=== PATIENT | male | born 1945 | race Caucasian/White ===

== ENCOUNTER → 2018-02-02 08:10 | Outpatient (CLI) | payer MEDICARE, SELFPAY ==
[2018-02-02 08:30] LABS: RBC Urine None Seen (0-5/HPF)
[2018-02-02 09:17] LABS: Eosinophils Percent Auto 1.4 % (2-4); Hematocrit 50.5 % (41-53); Hemoglobin 16.8 g/dL (13.5-17.5); Lymphocytes Percent Auto 39.3 % (25-40); Mean Corpuscular HGB Conc 33.3 % (30-36); Mean Corpuscular Hemoglobin 31.8 PG (26-34); Mean Corpuscular Volume 95.7 fL (80-100); Monocytes Percent Auto 15.5 % (3-14); Neutrophils Absolute Auto 1900 /uL (3000-5900); Neutrophils Percent Auto 42.8 % (50-75); Platelet Count 187 X10^3/uL (150-400); Prothrombin Time 10.9 SECONDS (10.1-12.7); Red Blood Cell Count 5.28 X10^6/uL (4.5-5.9); Red Cell Distribution Width 14.4 % (11.6-14.8); White Blood Cell Count 4.4 X10^3/uL (4.5-11.0)
[2018-02-02 09:22] LABS: Add Manual Diff / Slide Review SLIDE REVIEW
[2018-02-02 09:24] LABS: BUN Creatinine Ratio 23.6 (6-22); Blood Urea Nitrogen 26 mg/dL (9-20); Calcium 9.3 mg/dL (8.4-10.2); Carbon Dioxide 29 mmol/L (22-32); Chloride 101 mmol/L (98-107); Estimated Glomerular Filt Rate > 60.0 mL/min (>60); Glucose 123 mg/dL (80-110); HEMOLYSIS 22 (0-50); Potassium 4.2 mmol/L (3.4-5.1); Sodium 140 mmol/L (137-145)
[2018-02-02 10:59] LABS: Appearance Urine UA CLEAR; Bilirubin Urine UA NEGATIVE (NEGATIVE); Color Urine UA YELLOW; Glucose Urine UA NEGATIVE (Normal); Ketones Urine UA NEGATIVE (NEGATIVE); Leukocyte Esterase Urine UA NEGATIVE (NEGATIVE); Nitrite Urine UA Negative (Negative); Occult Blood Urine UA NEGATIVE (Negative); Protein Urine UA NEGATIVE (Negative); Urobilinogen Urine UA 0.2 E.U./dL (0.2)
[2018-02-02 11:11] LABS: Bacteria Urine Occasional (0-1); Culture Indicated Urine Cult Not Indicated; WBC Urine 0-1/HPF (0-5/HPF)
[2018-02-02 13:38] LABS: PTT Partial Thromboplastin Tim 32 SECONDS (26.4-36.2)
== END ==
PROVIDERS: Physician Assistant; Visit Provider Orthopaedic Surgery Sports Medicine
DX: M54.2 Cervicalgia (principal); Z22.322 Carrier or suspected carrier of Methicillin resistant Staphylococcus aureus
CPT/HCPCS: 36415; 80048; 81001; 85025; 85610; 85730; 87797

== ENCOUNTER → 2019-01-23 08:54 | Outpatient (CLI) | payer MEDICARE, SELFPAY ==
--- NOTE | 2019-01-23 09:06 | DI.CT.S_ITS ---
PROCEDURE: CT CHEST WO CON INDICATIONS: DYSPNEA TECHNIQUE: Noncontrast 5 mm thick sections acquired from the pulmonary apices to the posterior costophrenic angles. 7 mm thick coronal and sagittal MIP reformats were then acquired. For radiation dose reduction, the following was used: automated exposure control, adjustment of mA and/or kV according to patient size. COMPARISON: None. FINDINGS: Image quality: Excellent. Lungs and pleura: No acute air space opacities. No pleural effusions or pneumothorax. Central and peripheral airways are patent and normal in caliber. Mediastinum: Heart size is normal. No pericardial effusion. No mediastinal adenopathy by size criteria. Thoracic aorta and central pulmonary arteries are normal in size. Esophagus is normal in caliber. No hiatal hernia. Bones and chest wall: No suspicious bony lesions. No vertebral body compression fractures. No axillary or supraclavicular adenopathy by size criteria. Thyroid gland is not well-seen by this noncontrast technique but appears normal where well visualized. Abdomen: Visualized upper abdominal solid organs and bowel loops appear normal in the absence of contrast. IMPRESSION: Source of dyspnea is not found. Dictated by: Rambo Linton M.D. on 01/23/2019 at 11:24 Approved by: Rambo Linton M.D. on 01/23/2019 at 11:25
== END ==
PROVIDERS: PCP Family Medicine; Visit Provider Internal Medicine
DX: R06.00 Dyspnea, unspecified (principal)
CPT/HCPCS: 71250

== ENCOUNTER → 2019-01-31 11:07 | Outpatient (CLI) | payer MEDICARE, SELFPAY ==
--- NOTE | 2019-01-31 | DI.RAD.S_ITS ---
PROCEDURE: FL BARIUM SWALLOW INDICATIONS: DYSPHAGIA,HOARSENESS COMPARISON: [facility], CT, CT CHEST WO CON, 01/23/2019, 9:00. FINDINGS: Function: There is normal esophageal peristalsis. There is severe gastroesophageal reflux. There is normal transit of a calibrated barium tablet through the esophagus into the stomach. Morphology: Air-contrast images demonstrate normal mucosal morphology. Single contrast views show no esophageal strictures, extrinsic mass effects, or diverticula. Limited images of the stomach demonstrate normal appearance. IMPRESSION: 1. Severe gastroesophageal reflux. Dictated by: Rose Borjas M.D. on 01/31/2019 at 12:22 Approved by: Rose Borjas M.D. on 01/31/2019 at 12:23
== END ==
PROVIDERS: PCP Family Medicine; Visit Provider Otolaryngology
DX: R13.19 Other dysphagia (principal); R49.0 Dysphonia; K21.9 Gastro-esophageal reflux disease without esophagitis
CPT/HCPCS: 74220

== ENCOUNTER → 2019-08-26 09:46 | Outpatient (CLI) | payer MEDICARE, SELFPAY ==
--- NOTE | 2019-08-26 | DI.RAD.S_ITS ---
PROCEDURE: FL BARIUM SWALLOW W SPEECH INDICATIONS: Dysphagia, pharyngoesophageal phase TECHNIQUE: Examination was conducted in conjunction with speech pathology per standard protocol. In the lateral projection, filming was performed of the patient swallowing. AP projection filming may also be performed with patient swallowing. COMPARISON: [facility], , [place] BARIUM SWALLOW, 01/31/2019, 11:14. FINDINGS: Function: The oral preparatory phase appeared within normal limits. There were numerous episodes of laryngotracheal penetration without mynor aspiration. No pathologic vallecular pooling. Morphology: No cricopharyngeal bar is identified. No cervical esophageal webs. No Zenker's diverticulum. No strictures. Postsurgical changes of cervical spinal fusion involving C3-4 through C5-6. No significant mass effect upon the overlying esophagus. IMPRESSION: Modified barium swallow with speech pathology. Multiple episodes of laryngotracheal penetration without mynor aspiration. Please refer to speech pathology report for further details. Dictated by: Joce Valentino M.D. on 08/26/2019 at 19:20 Approved by: Joce Valentino M.D. on 08/26/2019 at 19:24
== END ==
PROVIDERS: PCP Family Medicine
DX: R13.14 Dysphagia, pharyngoesophageal phase (principal)
CPT/HCPCS: 74230

== ENCOUNTER 2019-08-30 13:30 | Outpatient (RCR) | payer MEDICARE, SELFPAY ==
--- NOTE | 2019-06-10 10:06 | ST.IPCSEOM ---
Visit Care Team Role Provider Type Aditi Obregon MD Attending Provider Non-Staff Primary Care Provider Specialty: [facility] Practice Address: [address] [place] [address], [id number] Fax: Email: Current Diagnoses Dysphagia, unspecified (06/07/19) Speech-Language Pathology Swallow Evaluation [facility] Clinical Swallow Evaluation Start: 06/07/19 11:48 Freq: Status: Active Protocol: Document 06/07/19 11:56 LNK (Rec: 06/07/19 12:47 LNK [email or web address]) Clinical Swallow Evaluation Session Time Visit Start Time 09:00 Visit Stop Time 09:50 Total Visit Minutes 50 Visit Information Visit Number 1 Plan of Care Dates 06/07/19-09/08/[address] Amna Obregon Reason for Referral Dysphagia Setting Assessment Location Outpatient Care Visit Type Note Type Initial Evaluation Next Note Type Next Note Type Treatment Note Patient Information Identification Type Name,Picture History Pt is a 73 year rold male seen for a clinical swallowing evaluation at the referral Dr. Obregon. According to the pt he has had a medical history of asthma as a child, and what he thought was COPD. He recently (01/31/19) underwent a barium swallow study and was diagnosed with severe GERD. Additionally, Pt was seen at [facility] for a Modified Barium Swallow Study (MBSS) on 05/27/19. The results of the MBSS indicated penetration, aspiration and prominent valecullar residue, likely secondary to incomplete epiglottic inversion. The pt also reported that he has had 2 ACDF surgeries, the most recent being in September 2018 . Finally he reported that about 30 years ago he underwent a palatal tissue removal that included his tonsils in an attempt to relieve his sleep apnea/ snoring. Subjective Observations The pt brought in a copy of his MBSS report Evaluation Liquids Trialed Thin Administration Type Tea Spoon,Cup Single Sip Oral Phase Comments Informal observation indicated natural dentition in good health. All other OM structures observed to be WFL Pharyngeal Impairment Moderately Impaired Pharyngeal Strategies Sitting Upright (90 deg),Chin Tuck,Double Swallow Pharyngeal Phase Comments The pt was given a trial of thin liquids via cup sip. Hyolaryngeal elevation appeared to be adequate via palpation for dry swallow. However, when drinking the thin liquid, his swallow was audible and gulpy indicating possible reduced laryngeal seal. This was confirmed via review of the [facility] report for the MBSS. Further a small sip required 3 swallow attempts with observed coughing and suspected aspiration indicating pharyngeal residue. Again, this was confirmed by [facility]'s MBSS report. ~5 trials followed with the pt attempting different swallow strategies, including chin tuck, supraglottic and supersupraglottic swallow techniques, all of which where inconsistently effective. Coughing or throat clearing occurred for each swallow. Th e pt continued to clear his throat for the remainder of the session. Findings Rehabilitation Potential Good Impressions Given the pt's medical history it is likely that his dysphagia may have developed secondary to the ACDF surgeries that he has had. Data indicate that ~40% of ACDF procedures result in dysphonia/dysphagia or both. Diet Recommendations Liquids Order Thin Diet Order Regular Medication Recommendations Whole in Carrier Comments Fastidious oral care Additional Dietary Needs Single Sips,No Straws Aspiration Precautions Recommended Precautions Upright at 90 Degrees, Alternate Liquids/Solids,Small Bites/Sips,Chin Tuck,Double Swallow,Supraglottic Swallow Treatment Plan Placement Recommendations after Outpatient Therapy Discharge Appropriate for Therapy Yes Therapy Recommendations Recommend dysphagia therapy to begin a strengthening program for tongue base, hyolaryngeal elevation and use of safe swallow techniques as indicated. Dysphagia Goals Pt will perform swallow HEP to increase tongue base and hyolaryngeal elevation exercises 5-10 times/day. Pt will use safe swallow strategies to reduce aspiration risk. [facility] Follow Up every 2 weeks x 2-3 months
--- NOTE | 2019-06-17 10:24 | ST.IPDYTX ---
Visit Care Team Role Provider Type Aditi Obregon MD Attending Provider Non-Staff Primary Care Provider Specialty: [facility] Practice Address: [address] [place] [address], [phone] Fax: Email: PEER EDUCATOR Dysphagia Treatment PEER EDUCATOR Dysphagia Treatment Start: 06/07/19 11:48 Freq: Status: Active Protocol: Document 06/17/19 10:07 LNK (Rec: 06/17/19 10:23 LNK [email or web address]) Dysphagia Treatment Session Time Visit Start Time 09:30 Visit Stop Time 10:05 Total Visit Minutes 35 Visit Information Visit Number 2 Plan of Care Dates 06/07/19-09/08/19 Setting Assessment Location Outpatient Care Visit Type Note Type Treatment Note Next Note Type Next Note Type Treatment Note Patient Information Identification Type Name,Picture Subjective Observations pt reported that his voice has improved and it is much easier to speak without pushing the air through. Treatment Liquids Trialed Thin Solids Trialed Regular Administration Type Cup Single Sip,Self-Feeding Oral Strategies Double Swallow,Alternate Liquids/Solids Pharyngeal Strategies Double Swallow,Effortful Swallow,Supraglottic Swallow, Small Bites and Sips,Alternate Liquids/Solids Additional Dysphagia Treatment Many repetitions ~ 100/day Strategies Treatment Activities Reviewed MBS results from [facility] PEER EDUCATOR. Primary areas of concern are valeccular inversion, pyriform sinus and valeculla pooling of both liquids and solids. Pt reports voice has improved and he feels it is more normal. Additionally, the pt reported that he thinks his swallow has improved, but less so than his voice. Reviewed exercises thet he is doing at home. We discussed continuing them for two more weeks to see if improvement continues. Three PO trials noted 1) less audible swallows and 2 the pt only needed two swallows per sip. Assessment Patient Response to Treatment Excellent Assessment of Improvement It appears that the glottal adduction exercises have been effective in vocal fold strengthening thereby improving airway protection. The pt's swallowing appears to be improved in decreased swallow noise and number of swallows per bolus. Diet Recommendations Recommendations Continue Current Diet Treatment Plan Appropriate for Continued Therapy Yes Dysphagia Goals Pt will continue to perform swallow HEP to increase tongue base and hyolaryngeal elevation exercises 5-10 times /day. Pt will use safe swallow strategies to reduce aspiration risk.
--- NOTE | 2019-07-01 10:12 | ST.IPDYTX ---
Visit Care Team Role Provider Type Aditi Obregon MD Attending Provider Non-Staff Primary Care Provider Specialty: [facility] Practice Address: [address] [place] [address], [phone] Fax: Email: ULTRASOUND TECHNOLOGIST Dysphagia Treatment ULTRASOUND TECHNOLOGIST Dysphagia Treatment Start: 06/07/19 11:48 Freq: Status: Active Protocol: Document 07/01/19 09:56 LNK (Rec: 07/01/19 10:06 LNK [email or web address]) Dysphagia Treatment Session Time Visit Start Time 09:30 Visit Stop Time 09:55 Total Visit Minutes 25 Visit Information Visit Number 3 Plan of Care Dates 06/07/19-09/08/19 Setting Assessment Location Outpatient Care Visit Type Note Type Treatment Note Next Note Type Next Note Type Treatment Note Patient Information Identification Type Name,Picture Subjective Observations pt reported that his voice has remains improved, however he has been waking up in the night gasping for air even with CPAP - is seeing physician about this. Also encouraged pt to rivas to MD about anti-reflux medication efficacy. Treatment Liquids Trialed Thin Solids Trialed Regular Administration Type Cup Single Sip,Self-Feeding Oral Strategies Double Swallow,Alternate Liquids/Solids Pharyngeal Strategies Double Swallow,Effortful Swallow,Supraglottic Swallow, Small Bites and Sips,Alternate Liquids/Solids Additional Dysphagia Treatment Many repetitions ~ 100/day Strategies Treatment Activities Pt reports voice has that his voice remains more like his normal voice. He also reported that he has had no choking/ coughing episodes with foods like chips, bananas, crackers, etc. He described his swallow has improved, but he still needs 2 swallows to clear the bolus. Trial thin liquids x3 noted: diminished gulpy, audible swallow. Upon palpation his hyolaryngeal elevation movement forward was noticeable , especially with tongue press against palate. Pt reported he is doing prescribed exercises daily. Added a ball for increased resistance to Shaker exercise. Will f/u in 2 weeks. Assessment Patient Response to Treatment Excellent Rehab Potential Good Assessment of Improvement It appears that the glottal adduction exercises have been effective in improving airway protection. The pt's swallowing appears to be improved in decreased swallow noise and number of swallows per bolus. Diet Recommendations Recommendations Continue Current Diet Liquids Order Thin Diet Order Regular Medication Recommendations Whole in Carrier Comments Fastideous oral care Additional Dietary Needs Single Sips,No Straws Aspiration Precautions Recommended Precautions Upright at 90 Degrees, Alternate Liquids/Solids,Small Bites/Sips,Chin Tuck,Double Swallow,Supraglottic Swallow Treatment Plan Placement Recommendation after Discharge Outpatient Therapy Appropriate for Continued Therapy Yes Therapy Recommendations continue POC/HEP Dysphagia Goals Pt will continue to perform swallow HEP to increase tongue base and hyolaryngeal elevation exercises 5-10 times /day. Pt will use safe swallow strategies to reduce aspiration risk. Follow Up Plan every 2 weeks x 2-3 months
--- NOTE | 2019-07-15 10:18 | ST.IPDYTX ---
Visit Care Team Role Provider Type Aditi Obregon MD Attending Provider Non-Staff Primary Care Provider Specialty: [facility] Practice Address: [address] [place] [address], [phone] Fax: Email: FLAT LOCK OPERATOR Dysphagia Treatment FLAT LOCK OPERATOR Dysphagia Treatment Start: 06/07/19 11:48 Freq: Status: Active Protocol: Document 07/15/19 10:10 LNK (Rec: 07/15/19 10:17 LNK [email or web address]) Dysphagia Treatment Session Time Visit Start Time 09:30 Visit Stop Time 10:00 Total Visit Minutes 30 Visit Information Visit Number 4 Plan of Care Dates 06/07/19-09/08/19 Setting Assessment Location Outpatient Care Visit Type Note Type Treatment Note Next Note Type Next Note Type Treatment Note Patient Information Identification Type Name,Picture Subjective Observations pt reported that his voice has remains improved, however he has been waking up in the night gasping for air even with CPAP - is seeing physician about this. Also encouraged pt to rivas to MD about anti-reflux medication efficacy and use of Mucinex ( re: coughing in sleep). Treatment Liquids Trialed Thin Solids Trialed Regular Administration Type Cup Single Sip,Self-Feeding Oral Strategies Double Swallow,Alternate Liquids/Solids Pharyngeal Strategies Double Swallow,Effortful Swallow,Supraglottic Swallow, Small Bites and Sips,Alternate Liquids/Solids Additional Dysphagia Treatment Many repetitions ~ 100/day Strategies Treatment Activities Pt reports voice has that his voice remains more like his normal voice. He also reprted that he has had little to no choking/coughing episodes. His throat clearing as been reduced since starting Mucinex . He described his swallow has improved, but he still has difficulty with pills getting stuck. Continue all swallowing exercises for HEP. Recommend that pt get a repeat MBSS in early August to determine efficacy of current POC and to guide further treatment options. Assessment Patient Response to Treatment Excellent Rehab Potential Good Assessment of Improvement The pt's swallowing appears to be improved. Diet Recommendations Recommendations Continue Current Diet Liquids Order Thin Diet Order Regular Medication Recommendations Whole in Carrier Comments Fastideous oral care Additional Dietary Needs Single Sips,No Straws Aspiration Precautions Recommended Precautions Upright at 90 Degrees, Alternate Liquids/Solids,Small Bites/Sips,Chin Tuck,Double Swallow,Supraglottic Swallow Treatment Plan Placement Recommendation after Discharge Outpatient Therapy Appropriate for Continued Therapy Yes Therapy Recommendations continue POC/HEP Dysphagia Goals Pt will continue to perform swallow HEP to increase tongue base and hyolaryngeal elevation exercises 5-10 times /day. Pt will use safe swallow strategies to reduce aspiration risk. Follow Up Plan Will f/u at [facility] appointment
--- NOTE | 2019-08-30 17:20 | ST.SWALLOW ---
Visit Care Team Role Provider Type Aditi Obregon MD Attending Provider Non-Staff Primary Care Provider Specialty: Family Practice Address: [address] [place] [address], [phone] Fax: Email: ST Modified Barium Swallow Study GLASS PRESSER Modified Barium Swallow Study Start: 06/07/19 11:48 Freq: Status: Active Protocol: Document 08/26/19 16:42 LNK (Rec: 08/30/19 17:19 LNK [email or web address]) Modified Barium Swallow Study Total Time Visit Start Time 10:30 Visit Stop Time 11:00 Total Visit Minutes 30 Visit Information Plan of Care Dates 08/30/19 Insurance Information 11/29/19 Setting Setting Outpatient Care Patient Information Identification Type Name Patient History According to the pt he has had a medical history of asthma as a child, and what he thought was COPD. He underwent a barium swallow study (), and was diagnosed with severe GERD. Additionally, Pt was seen at [facility] for a Modified Barium Swallow Study (MBSS) on . The results of the MBSS indicated penetration, aspiration and prominent valecullar residue, likely secondary to incomplete epiglottic inversion. The pt also reported that he has had 2 ACDF surgeries, the most recent being in September 2018. Finally he reported that about 30 years ago he underwent a palatal tissue removal that included his tonsils in an attempt to relieve his sleep apnea/ snoring. Pt has been seen for dysphagia therapy x 3 months following an exercise program. [ End Subjective Observations Pt was seated in the flouroscopy chair. He was provided with the procedure and instructions for the study . He agreed to proceed. Pt reported that he will be traveling or out of state until early January 2020. Patient Positioning Position View Lateral Imaging Lateral View Textures Administered Trials Presented Thin Liquid via Spoon,Thin Liquid via Cup,[place] Liquid via Spoon,[place] Liquid via Cup,Honey Liquid via Spoon, Regular Textures Oral Phase Source: MBSIMP (TM) (C) Bolus Specific Scoring Grid Lip Closure WFL Tongue Control During Bolus Hold WFL Bolus Prep/Mastication WFL Bolus Transport/Lingual Motion WFL Oral Residue WFL Residue Clearing WFL Nasal Regurgitation No Pharyngeal Phase Source: MBSIMP (TM) (C) Bolus Specific Scoring Grid Delayed Initiation of Pharyngeal Swallow No Soft Palate Elevation WFL Tongue Base Strength/Range of Motion Moderate Impairment Residue Along the Tongue Base Yes Clearance of Residue Along Tongue Base WFL Laryngeal Elevation Moderate Impairment Anterior Hyoid Movement Moderate Impairment Epiglottic Range of Motion Moderate Impairment Vallecular Residue Yes Clearance of Vallecular Residue Moderate Impairment Laryngeal Vestibular Closure Moderate Impairment Pharyngeal Stripping Wave Moderate Impairment Posterior Pharyngeal Wall Residue Yes Clearance of Posterior Pharyngeal Wall Moderate Impairment Residue Upper Esophageal Sphincter Opening WFL Residue in the Pyriform Sinuses Yes Clearance of Residue in the Pyriform Moderate Impairment Sinuses Esophageal Clearance Upright Position WFL Pharyngoesophageal Backflow Observed No Additional Pharyngeal Phase Observations Penetration into the laryngeal vestibule was observed across all trials. No overt aspiration observed. Residue on the anterior wall of the thyroid lamina was observed to slowly flow toward the vocal folds. Reflexive cough/throat clear was observed for each trial and was effective in clearing residue. Hyolaryngeal elevation and forward movement was reduced. Minimal posterior pharyngeal stripping was observed, reducing control of the bolus to the UES. Epiglottic inversion was not observed, increasing risk of penetration/aspiration. Often the epiglottis did not invert or partially inverted. Pooling in the vallecula, pyriform sinuses, along the posterior pharyngeal wall and throughout the pharynx was noted. Residue was observed to flow into the airway with subsequent swallows. The pt was observed to swallow 4-5 times in order to clear the bolus. He reported that he swallows many times per bite/ sip in order to clear a bolus. And he frequently coughs or clears his throat during a meal. He describes the coughing/throat clearing as constant A/P View Clinical Impressions Dysphagia Type Moderate-severe pharyngeal phase dysphagia Findings The pt provided a copy of his original MBS from May. When viewed and compared to the current MBS described, there is minimal improvement overall in his swallow function. A small difference may be seen in laryngeal elevation. Pt has consistently been practicing and performing the swallowing exercises as prescribed for 3 months. More improvement would have been expected. The lack of significant improvement appears to indicate there is neuromuscular changes that may have been a result of the two ACDF procedures. One therapeutic strategy/ treatment that has not been attempted to date is the use of VitalStim therapy. VitalStim therapy uses electrical stimulation of the swallow muscles to excite the nerves and is thought to increase the strength of muscular contraction for improving swallowing. VitalStm therapy is recommended to determine the effectiveness of the technique for improving pt's swallow function. A VitalStim certified GLASS PRESSER is required to perform the treatments. [facility] has an GLASS PRESSER that is certified and has experience with the VitalStim treatment protocol. Patient Appropriate for Therapy Yes: VitalStim Therapy when pt returns to [place] in January. Recommendations Treatment Plan Therapy Recommendations Outpatient Speech Therapy, Other Additional Therapy Recommendations VitalStim therapy
--- NOTE | 2019-08-30 17:22 | ST.OPPOC ---
Physical, Occupational & Speech Therapy At [facility] Visit Care Team Role Provider Type Aditi Obregon MD Attending Provider Non-Staff Primary Care Provider Address: [address] [place] [address], [place], [phone] Fax: Speech Pathology Plan of Care Plan of Care Dates 06/07/19-09/08/19 Rehabilitation Potential Good Electronically Signed by: GENET Cortez 08/30/19 1431 Please Sign and Return: I have reviewed this Plan of Care and certify that the skilled therapy services above are required to meet the patient?s needs. Physician Signature Date Printed Name and Credentials Clinical Instructor Signature Printed Name and Credentials
--- NOTE | 2019-08-30 18:32 | ST.IPDYTX ---
Visit Care Team Role Provider Type Aditi Obregon MD Attending Provider Non-Staff Primary Care Provider Specialty: Family Practice Address: [address] [place] [address], [phone] Fax: Email: UTILITY LOCATOR Dysphagia Treatment UTILITY LOCATOR Dysphagia Treatment Start: 06/07/19 11:48 Freq: Status: Active Protocol: Document 08/30/19 18:21 LNK (Rec: 08/30/19 18:32 LNK [email or web address]) Dysphagia Treatment Session Time Visit Start Time 14:30 Visit Stop Time 15:30 Total Visit Minutes 60 Visit Information Visit Number 5 Plan of Care Dates 06/07/19-09/08/19 Setting Assessment Location Outpatient Care Visit Type Note Type Treatment Note Next Note Type Next Note Type Treatment Note Patient Information Identification Type Name,Picture Subjective Observations pt reported that his voice has remains improved, however he has been waking up in the night gasping for air even with CPAP - is seeing physician about this. Also encouraged pt to rivas to MD about anti-reflux medication efficacy and use of Mucinex ( re: coughing in sleep). Treatment Pharyngeal Strategies Double Swallow,Effortful Swallow,Supraglottic Swallow, Small Bites and Sips,Alternate Liquids/Solids Additional Dysphagia Treatment Many repetitions ~ 100/day Strategies Treatment Activities Reviewed the most recent MBs with Joce and his . Described the results and noted that there has been minimal improvement in his swallow function. Recommended that he try VitalStim therapy to see if there can be greater improvement with electrical stim. Joce and his are going to be out of state and on vacation for the next 4-5 months. he wants to resume therapy with Vital Sim after he returns. Assessment Patient Response to Treatment Good Rehab Potential Fair Diet Recommendations Recommendations Continue Current Diet Medication Recommendations Whole in Carrier Comments Fastideous oral care Additional Dietary Needs Single Sips,No Straws Aspiration Precautions Recommended Precautions Upright at 90 Degrees, Alternate Liquids/Solids,Small Bites/Sips,Chin Tuck,Double Swallow,Supraglottic Swallow Treatment Plan Placement Recommendation after Discharge Outpatient Therapy Appropriate for Continued Therapy Yes Therapy Recommendations continue POC/HEP Dysphagia Goals Pt will continue to perform swallow HEP to increase tongue base and hyolaryngeal elevation exercises 5-10 times /day. Pt will use safe swallow strategies to reduce aspiration risk. Follow Up Plan Will f/u at [facility] appointment
--- NOTE | 2019-09-10 14:54 | ST.IPDYTX ---
Visit Care Team Role Provider Type Aditi Obregon MD Attending Provider Non-Staff Primary Care Provider Specialty: [facility] Practice Address: [address] [place] [address], [phone] Fax: Email: SKIMMER REVERBERATORY Dysphagia Treatment SKIMMER REVERBERATORY Dysphagia Treatment Start: 06/07/19 11:48 Freq: Status: Active Protocol: Document 09/10/19 13:30 LNK (Rec: 09/10/19 14:53 LNK [id number]) Dysphagia Treatment Visit Type Note Type Discharge Summary Patient Information Subjective Observations pt reported that his voice has remains improved, however he has been waking up in the night gasping for air even with CPAP - is seeing physician about this. Also encouraged pt to rivas to MD about anti-reflux medication efficacy and use of Mucinex ( re: coughing in sleep). Treatment Treatment Activities Pt is on vacation or out of state until January 2020 Diet Recommendations Recommendations Continue Current Diet Additional Dietary Needs Single Sips,No Straws Aspiration Precautions Recommended Precautions Upright at 90 Degrees, Alternate Liquids/Solids,Small Bites/Sips,Chin Tuck,Double Swallow,Supraglottic Swallow Treatment Plan Appropriate for Continued Therapy No
== END 2019-09-12 13:06 ==
LOC: SP 13:30
PROVIDERS: PCP Family Medicine; Visit Provider Family Medicine
DX: R13.10 Dysphagia, unspecified (principal)
CPT/HCPCS: 92526; 92610; 92611

== ENCOUNTER 2020-05-08 09:30 | Outpatient (RCR) | payer MEDICARE, SELFPAY ==
--- NOTE | 2020-03-26 16:50 | ST.OPIE ---
Visit Care Team Role Provider Type Aditi Obregon MD Attending Provider Non-Staff Primary Care Provider Referring Provider Specialty: [facility] Address: [address] [place] [address], [phone] Fax: Email: Speech-Language Pathology Initial Evaluation DATA MODELER Voice Resonance Evaluation Start: 03/26/20 16:16 Freq: Status: Active Protocol: Document 03/26/20 16:16 LNK (Rec: 03/26/20 16:50 LNK [email or web address]) Voice and Resonance Assessment Session Time Visit Start Time 15:30 Visit Stop Time 16:30 Total Visit Minutes 60 Visit Information Visit Number 1 Plan of Care Dates 03/26/20-05/26/20 Next Note Type Next Note Type Treatment Note Referral Referring Physician Dr. 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 He had been receiving dysphagia therapy for frequent coughing and choking when eating. Swallowing exercises were not effective. It was recommended that pt see Dr Torrez in [place] for stroboscopy assessment. 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 Pt then saw Dr Torrez for vocal fold augmentation with fillers to better position the paralyzed vocal fold for adduction and voice production. Previous Therapy Previous Speech-Language Therapy Yes: Dysphagia therapy Subjective Subjective Pt arrived on time. - Laryngeal Performance S/Z Ratio Reduced Laryngeal Function Relative to No: Pt able to phonate ~ 16s Respiration CAPE-V Overall Severity 71 Roughness 74 Breathiness 40 Strain 18 Pitch 20 Loudness 22 Normal Resonance? Yes Additional Features Diplophonia,Glottal Boland, Aphonia,Pitch Instability Maximum Phonation Time MPT Norms: Women (15-25) Men (25-35) Loudness (50-60 dB); Speaking Rate: Oral Reading of Sentences (190 Words Per Minute); Oral Reading of Paragraphs (160-170 WPM); Speaking Rate in Conversation (150-250 WPM) Maximum Phonation Time 15.6s Maximum Phonation Time Adequate for Speech,Unstable Pitch,Unstable Loudness Jitter/Shimmer Norms: Jitter (Less than or equal to 1.040% - Frequency) Norms: Shimmer (Less than or equal to 3.810% - Amplitude) Jitter 4.7 Shimmer 16.6 Pitch [place] Pitch [place] Pitch Breaks,Reduced Range, Cessation of Voicing Muscle Tension Assessment Muscle Tension Assessment Neck Breath Support Breath Support At Rest Thoracic Breath Support Sustained Phonation Thoracic Speaks on Room Air Yes Postural Alignment Stance Balanced Voice Pitch Range Norms: Women (100-300 Hz) Men (70-250 Hz) Fundamental Frequency Norms: Women (Mean: 225 Hz; Range: 155-334 Hz) Men ( Mean: 128 Hz; Range: 85-196 Hz) Voice Pitch Excessive Variation,Pitch Breaks,Diplophonia Voice Loudness Normal Voice Phonatory-based Quality Loss of Voice,Glottal Boland, Pitch Breaks,Diplophonia Fundamental Frequency 167.5 Hz Paradoxical Vocal Fold Movement No Indications Resonance Nasal Resonance Normal Other Observations Throat Clearing Therapeutic Techniques Therapy Tactics Hard Glottal Onset,Increase Loudness,Increase Fundamental Frequency Voice/Resonance Assessment Assessment Pt presented with a variable voice quality and pitch following filler injection of paralyzed vocal fold. This is frustrating to the pt. However, he has not had this injection very long and is somewhat expected. It is not uncommon for a pt's voice to be inconsistent given there is new mass within the paralyzed vocal fold and the pt is unused to the control needed in order to phonate now. Voice therapy is recommended to increase the adduction of the vocal folds for imporved vocal quality and pitch Prognosis Rehabilitation Potential Excellent - Recommendations Treatment Recommended Yes Treatment Frequency/Duration 1x/every 3 weeks x 3 months Short Term Goals Pt will perform HEP 2-3 times/ day: vocal adduction exercises u to 25 times per session for 3 weeks. Day Camp Unit Leader Goals Pt's vocal quality and pitch will improve in to WFL. Patient/Caregiver Education Patient/Family Education Described results of evaluation,Patient Understanding,Patient Demonstration
--- NOTE | 2020-04-17 10:23 | ST.OPTN ---
Visit Care Team Role Provider Type Aditi Obregon MD Attending Provider Non-Staff Primary Care Provider Referring Provider Address: [address] [place] [address], [phone] Fax: IT APPLICATIONS ANALYST Treatment Note IT APPLICATIONS ANALYST Treatment Note Start: 03/26/20 16:16 Freq: Status: Active Protocol: Document 04/17/20 10:04 LNK (Rec: 04/17/20 10:23 LNK [id number]) Speech Pathology Treatment Note Session Time Visit Start Time 09:30 Visit Stop Time 10:00 Total Visit Minutes 30 Visit Information Visit Number 2 Plan of Care Dates 03/26/20-05/26/20 Setting Treatment Setting Outpatient Care Visit Type Note Type Treatment Note Next Note Type Next Note Type Treatment Note General Information General Information Pt is a 74 year old male 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 Pt then saw Dr Torrez for vocal fold augmentation with fillers to better position the paralyzed vocal fold for adduction and voice production. [ End ] Subjective Identification Type Name Identification Reconciled With Medical Record Chief Complaint(s) Swallowing,Voice Rehab Expectation/Goals: Patient Goals Improve vocal quality and reduce risk for aspiration Patient Knowledge/Awareness of IT APPLICATIONS ANALYST Role Excellent in Treatment Patient/Caregiver Compliance with Home Excellent Exercise Program Objective Short Term Goals Pt will perform HEP 2-3 times/ day: vocal adduction exercises u to 25 times per session for 3 weeks. Er Physician Goals Pt's vocal quality and pitch will improve in to WFL. Treatment Activities Pt's voice seemed to be less croaky today. Pt reported that he has stopped mucinex because of effect on blood pressure. pt reported that he has been performing vocal fold adduction exercises daily . Added supraglottic swallow (modified - no cough) during meals to increase functional aspect to adduction exercise. Also added Althea and Misako exercises in attempt to strengthen tongue base and improve hyoid movement, reducing pt's aspiration risk Assessment Patient Response to Treatment Excellent Rehab Potential Excellent Impairments Identified Dysphagia,Vocal Quality Progress Towards Goals Excellent Progress Assessment of Overall Progress Improving Assessment of Improvement Pt reports improvement noted with his swallow since the vocal fold augmentation and adduction exercises started. Perceptually, voice less croaky and more tonal. Continue POC will see pt in 3 weeks. Reviewed with Patient Progress Being Made,Home Exercise Program Patient/Caregiver Understanding Excellent Plan Amount of Therapy Recommended 2-3 Months Comment 1x every 3 weeks Length of Session 30 Minutes Therapeutic Contents Swallowing/Feeding,Voice Training Provided Patient/Caregiver Instruction Home Exercise Program, Questions/Concerns Therapy Recommendations Continue with Current Program
--- NOTE | 2020-05-08 10:22 | ST.OPDS ---
Visit Care Team Role Provider Type Aditi Obregon MD Attending Provider Non-Staff Primary Care Provider Referring Provider Address: [address] [place] [address], [phone] Fax: HOOP RIVETING MACHINE OPERATOR HELPER Treatment Note HOOP RIVETING MACHINE OPERATOR HELPER Treatment Note Start: 03/26/20 16:16 Freq: Status: Active Protocol: Document 05/08/20 09:34 LNK (Rec: 05/08/20 10:21 LNK [email or web address]) Speech Pathology Treatment Note Session Time Visit Start Time 09:30 Visit Stop Time 10:00 Total Visit Minutes 30 Visit Information Visit Number 3 Plan of Care Dates 03/26/20-05/26/20 Setting Treatment Setting Outpatient Care Visit Type Note Type Treatment Note Next Note Type Next Note Type Treatment Note General Information General Information Pt is a 74 year old male familiar to this HOOP RIVETING MACHINE OPERATOR HELPER who had been diagnosed by Dr. Torrez with a unilateral vocal fold paralysis in the closed positon. Pt then saw Dr Torrez for vocal fold augmentation with fillers to better positon the paralyzed vocal fold for adduction and voice production. [ End ] Subjective Identification Type Name Identification Reconciled With Medical Record Chief Complaint(s) Swallowing,Voice Rehab Expectation/Goals: Patient Goals Improve vocal quality and reduce risk for aspiration Patient Knowledge/Awareness of HOOP RIVETING MACHINE OPERATOR HELPER Role Excellent in Treatment Patient/Caregiver Compliance with Home Excellent Exercise Program Objective Short Term Goals Pt will perform HEP 2-3 times/ day: vocal adduction exercises u to 25 times per session for 3 weeks. Nursing Home Goals Pt's vocal quality and pitch will improve in to WFL. Treatment Activities Re- evaluation of pt's vocal parameters. Vocal quality improved significantly. All parameters improved significantly as well. No pitch breaks, or variability of phonation for extended vocalization max Phonation time 17.6 seconds, Jitter @3. 025% and Simmer @ 4.58%. Pitch range 87-321Hz, ,which demonstrates improved flexibility of vocal folds. Finally, Pt reported that he has had no difficulty with excessive throat clearing or aspirating when eating. Assessment Patient Response to Treatment Excellent Rehab Potential Excellent Impairments Identified Dysphagia,Vocal Quality Progress Towards Goals Excellent Progress Assessment of Overall Progress Improving Assessment of Improvement Pt reports improvement noted with his swallow since the vocal fold augmentation and adduction exercises started. Reviewed with Patient Progress Being Made,Home Exercise Program Patient/Caregiver Understanding Excellent Plan Amount of Therapy Recommended No Further Therapy Therapeutic Contents Swallowing/Feeding,Voice Training Provided Patient/Caregiver Instruction Home Exercise Program, Questions/Concerns Therapy Recommendations Continue with Current Program, Discharge to Home Exercise Program
== END 2020-05-22 09:33 ==
LOC: SP 09:30
PROVIDERS: PCP Family Medicine; Referring Provider Family Medicine; Visit Provider Family Medicine
DX: R13.10 Dysphagia, unspecified (principal)
CPT/HCPCS: 92507; 92520; 92524

== ENCOUNTER 2020-06-10 07:27 | Emergency (ER) | payer MEDICARE, SELFPAY ==
[2020-06-10 07:36] VITALS: BP 123/77; PULSE 86; O2SAT 96
[2020-06-10 07:38] VITALS: BP 123/77; PULSE 88; RESP 16; TEMP 37; O2SAT 96; BMI 24.3
--- NOTE | 2020-06-10 07:43 | ED_ITS ---
HPI - General Adult General Chief complaint: Urogenital-Male Stated complaint: POSSIBLE UTI Time Seen by Provider: 06/10/20 07:29 Source: patient Mode of arrival: Ambulatory Limitations: no limitations History of Present Illness HPI narrative: Patient is a 74-year-old male here for evaluation of what he thinks is a urinary tract infection. Patient's history is significant for a brain biopsy that was done earlier this month and diagnosed with a glioblastoma. After surgery there were some issues with his blood sugar and his states that he was also found to be retaining urine. A urinary catheter was placed which she had in for 12 days. This was removed approximately 1 week ago. Since that time he states that he has had some discomfort with urinating however this has worsened over the past couple days. No fevers. He has never been treated for urinary tract infection in the past but he states that he thinks that he has had 1. He also has known prostate issues. Currently denies any fevers. No bowel symptoms. No nausea vomiting. Related Data Home Medications Medication Instructions Recorded Confirmed amlodipine 10 mg tablet 10 mg PO DAILY 02/02/18 05/04/20 certolizumab pegol 200 mg SUBCUT ONCE 02/02/18 05/04/20 folic acid 400 mcg tablet 400 mcg PO DAILY 02/02/18 05/04/20 modafinil 200 mg tablet 200 mg PO DAILY 02/02/18 05/04/20 montelukast 10 mg tablet 10 mg PO QPM 02/02/18 05/04/20 omega-3 fatty acids 1,000 mg 2,000 mg PO DAILY 02/02/18 05/04/20 capsule omeprazole 20 mg tablet,delayed 20 mg PO DAILY 02/02/18 05/04/20 release testosterone cypionate 200 mg/mL 200 mg IM Q2W 02/02/18 05/04/20 intramuscular oil valsartan 320 mg tablet 320 mg PO DAILY 02/02/18 05/04/20 Previous Rx's Medication Instructions Recorded levofloxacin 250 mg PO DAILY 3 Days #3 tab 06/10/20 Allergies Allergy/AdvReac Type Severity Reaction Status Date / Time bupropion [From WELLBUTRIN] Allergy Intermediate Hives Verified 05/04/20 11:03 effudex cream Allergy Severe Facial Uncoded 03/22/18 09:47 swelling Review of Systems Constitutional Constitutional: Denies fever(s) and Denies headache(s) ENT Ears, Nose, Mouth, and Throat: Denies headache(s) Cardiovascular Cardiovascular: Denies chest pain and Denies dyspnea Respiratory Respiratory: Denies dyspnea Gastrointestinal Gastrointestinal: Denies abdominal pain, Denies change in bowel habits, Denies nausea and Denies vomiting Genitourinary Genitourinary: Reports dysuria, Reports urinary frequency and Reports urinary hesitancy Genitourinary: Reports urinary frequency, Reports dysuria and Reports urinary hesitancy Musculoskeletal Musculoskeletal: Denies arthralgias, Denies back pain and Denies myalgias Integumentary/Breasts Skin/Breast: Denies rash Neurologic Neurologic: Denies headache(s) Hematologic/Lymphatic Hematologic/Lymphatic: Denies easy bleeding and Denies easy bruising Allergic/Immunologic Allergic/Immunologic: Denies urticaria Patient History Medical History Crohn's disease with complication (03/08/16) Essential hypertension (03/08/16) Glioblastoma (Acute) Iron deficiency (03/08/16) Pulmonary emphysema (03/08/16) Social History Smoking Status: Former smoker Smoking Status: Former smoker Exam Initial Vital Signs Initial Vital Signs: Vital Signs Temperature 98.6 F 06/10/20 07:38 Pulse Rate 88 06/10/20 07:38 Respiratory Rate 16 06/10/20 07:38 Blood Pressure 123/77 06/10/20 07:38 Pulse Oximetry 96 06/10/20 07:38 Const General: cooperative and comfortable Resp Effort & Inspection: normal respiratory effort Cardio Rate: regular rate GI Inspection: non-distended Palpation: soft and No tender Skin Lesions: no lesions Rashes: no rashes Neuro General: patient alert and patient awake Extrem General: capillary refill normal Psych Appearance: grossly normal and well kempt Course Orders Ordered: ED Orders 06/10/20 08:45 Urine Culture Stat Urine Culture Stat Urine Microscopic Stat Vital Signs Vital signs: Vital Signs - 8 hr 06/10/20 07:38 Temperature 98.6 F Pulse Rate 88 Respiratory Rate 16 Blood Pressure 123/77 Pulse Oximetry 96 Medical Decision Making Lab Data Lab results reviewed: Yes I reviewed the patient's lab results. Labs: Lab Results 06/10/20 Range/Units 08:45 Urine RBC None seen (0-5/HPF) Urine WBC 1-5/hpf (0-5/HPF) Urine Bacteria Many (>30) H (None) Ur Culture Indicated? Specimen cultured Urine Dip Bedside Urine Glucose Negative Bedside Urine Bilirubin - Negative Bedside Urine Ketone - Negative Urine Specific [place] 1.015 Bedside Urine Occult Blood - Negative Bedside Urine pH 7 Bedside Urine Protein - Negative Bedside Urine Urobilinogen +/- 1mg Bedside Urine Nitrite + Positive Bedside Urine Leukocytes - Negative Esterase Point of care testing: Urine Dip Bedside Urine Glucose Negative Bedside Urine Bilirubin - Negative Bedside Urine Ketone - Negative Urine Specific [place] 1.015 Bedside Urine Occult Blood - Negative Bedside Urine pH 7 Bedside Urine Protein - Negative Bedside Urine Urobilinogen +/- 1mg Bedside Urine Nitrite + Positive Bedside Urine Leukocytes - Negative Esterase MDM Narrative Medical decision making narrative: Initial bladder scan showed just over 100 cc urine. Patient drank fluids and was still unable to urinate he requested that we place a catheter to obtain the urine sample. We did discuss the risks and benefits of this and he again expressed a desire to have the catheter. The urinalysis from the specimen showed nitrite positive and also bacteria. Given his physical exam I do suspect this is an infection and not just a colonization given his recent catheter placement and subsequent removal. On this visit the catheter was left in for short period of time and we did drain 600 cc of urine from his bladder. I had a discussion with him regarding the catheter. We discussed removing it here in the emergency department and the potential that despite the antibiotics he continues to have issues urinary retention which require him to come back to the emergency department have the catheter placed again. We also discussed leaving the catheter in place to avoid this issue. After this discussion him and his decided to have the catheter removed. Given his upcoming issues with chemotherapy and radiation will place him on Levaquin. Urine culture was pending at the time of discharge and he was informed of this and we will call if we need to switch any antibiotics. He expressed understanding and agreement. Discharge Plan Departure Patient Disposition: Home Clinical Impression: Urinary tract infection Qualifiers: Urinary tract infection type: acute cystitis Hematuria presence: without hematuria Qualified Code(s): N30.00 - Acute cystitis without hematuria Instructions: DI for Urinary Tract Infection (UTI) Activity Restrictions/Additional Instructions: A prescription for antibiotics was electronically transmitted to [facility]. Keep all of your scheduled medical appointments. If you start to have worsening pain, fevers, inability to urinate please return to the emergency department for further evaluation. Prescriptions: New levofloxacin 250 mg tablet 250 mg PO DAILY 3 Days Qty: 3 RF: 0 No Action amlodipine 10 mg tablet 10 mg PO DAILY RF: 0 valsartan 320 mg tablet 320 mg PO DAILY RF: 0 modafinil 200 mg tablet 200 mg PO DAILY RF: 0 certolizumab pegol [Cimzia] 400 mg/2 mL (200 mg/mL x 2) syringe kit 200 mg SUBCUT ONCE RF: 0 omeprazole 20 mg tablet,delayed release (DR/EC) 20 mg PO DAILY RF: 0 testosterone cypionate [Depo-Testosterone] 200 mg/mL oil 200 mg IM Q2W RF: 0 montelukast [Singulair] 10 mg tablet 10 mg PO QPM RF: 0 omega-3 fatty acids [Fish Oil Concentrate] 1,000 mg capsule 2,000 mg PO DAILY RF: 0 folic acid 400 mcg tablet 400 mcg PO DAILY RF: 0 Referrals: Aditi Obregon MD [Primary Care Provider] -
[2020-06-10 08:54] LABS: RBC Urine None Seen (0-5/HPF)
[2020-06-10 09:06] LABS: Bacteria Urine Many (>30); Culture Indicated Urine Specimen Cultured; WBC Urine 1-5/HPF (0-5/HPF)
[2020-06-10 09:13] VITALS: PULSE 71; O2SAT 96
[2020-06-10 09:14] VITALS: BP 125/78; PULSE 71; RESP 16; O2SAT 96
== END 2020-06-10 09:20 | disposition home or self-care (01) ==
PROVIDERS: Emergency Provider Emergency Medicine; PCP Family Medicine
DX: N30.00 Acute cystitis without hematuria (principal)
CPT/HCPCS: 51701; 51798; 81003; 81015; 87077; 87086; 87186; 99283

== ENCOUNTER 2020-07-06 17:23 | Emergency (ER) | payer MEDICARE, SELFPAY ==
[2020-07-06 17:27] VITALS: BP 165/104; PULSE 78; RESP 24; TEMP 36.8; O2SAT 97
--- NOTE | 2020-07-06 18:19 | ED.ABDPAIN ---
HPI - Abdominal Pain General Chief Complaint: Abdominal Pain Stated Complaint: BLOCKED UP Time Seen by Provider: 07/06/20 18:11 Source: patient Mode of arrival: Ambulatory Related Data Home Medications Medication Instructions Recorded Confirmed amlodipine 10 mg tablet 10 mg PO DAILY 02/02/18 05/04/20 certolizumab pegol 200 mg SUBCUT ONCE 02/02/18 05/04/20 folic acid 400 mcg tablet 400 mcg PO DAILY 02/02/18 05/04/20 modafinil 200 mg tablet 200 mg PO DAILY 02/02/18 05/04/20 montelukast 10 mg tablet 10 mg PO QPM 02/02/18 05/04/20 omega-3 fatty acids 1,000 mg 2,000 mg PO DAILY 02/02/18 05/04/20 capsule omeprazole 20 mg tablet,delayed 20 mg PO DAILY 02/02/18 05/04/20 release testosterone cypionate 200 mg/mL 200 mg IM Q2W 02/02/18 05/04/20 intramuscular oil valsartan 320 mg tablet 320 mg PO DAILY 02/02/18 05/04/20 Allergies Allergy/AdvReac Type Severity Reaction Status Date / Time bupropion [From WELLBUTRIN] Allergy Intermediate Hives Verified 05/04/20 11:03 effudex cream Allergy Severe Facial Uncoded 03/22/18 09:47 swelling Patient History Medical History (Updated 06/25/20 @ 00:00 by ) Crohn's disease with complication (03/08/16) Essential hypertension (03/08/16) Glioblastoma Iron deficiency (03/08/16) Pulmonary emphysema (03/08/16) Social History Smoking Status: Former smoker Smoking Status: Former smoker alcohol intake frequency: a few times a month Substance Use Type: marijuana Exam Initial Vital Signs Initial Vital Signs: Vital Signs Temperature 98.3 F 07/06/20 17:27 Pulse Rate 78 07/06/20 17:27 Respiratory Rate 24 07/06/20 17:27 Blood Pressure 165/104 H 07/06/20 17:27 Pulse Oximetry 97 07/06/20 17:27 Course Vital Signs Vital signs: Vital Signs - 8 hr 07/06/20 17:27 Temperature 98.3 F Pulse Rate 78 Respiratory Rate 24 Blood Pressure 165/104 H Pulse Oximetry 97 Discharge Plan Departure Prescriptions: No Action amlodipine 10 mg tablet 10 mg PO DAILY RF: 0 valsartan 320 mg tablet 320 mg PO DAILY RF: 0 modafinil 200 mg tablet 200 mg PO DAILY RF: 0 certolizumab pegol [Cimzia] 400 mg/2 mL (200 mg/mL x 2) syringe kit 200 mg SUBCUT ONCE RF: 0 omeprazole 20 mg tablet,delayed release (DR/EC) 20 mg PO DAILY RF: 0 testosterone cypionate [Depo-Testosterone] 200 mg/mL oil 200 mg IM Q2W RF: 0 montelukast [Singulair] 10 mg tablet 10 mg PO QPM RF: 0 omega-3 fatty acids [Fish Oil Concentrate] 1,000 mg capsule 2,000 mg PO DAILY RF: 0 folic acid 400 mcg tablet 400 mcg PO DAILY RF: 0
--- NOTE | 2020-07-06 18:21 | ED.ABDPAIN ---
HPI - Abdominal Pain General Chief Complaint: Abdominal Pain Stated Complaint: BLOCKED UP Time Seen by Provider: 07/06/20 18:11 Source: patient Mode of arrival: Ambulatory Limitations: no limitations History of Present Illness HPI narrative: Patient is a 74-year-old male. Is currently undergoing chemotherapy for a glioblastoma. He has taken oral chemotherapy. He was told by his oncologist at this oral chemotherapy medication can cause constipation. He started it within the last week and has not had a bowel movement in the past 3-4 days. He has tried several fleets enemas at home without any improvement has also tried some oral laxatives. Reports that his abdomen feels distended. He does feel like there is stool in his rectum. No fevers. No vomiting. He has had a bowel obstruction in the past any states this feels different than that. Related Data Home Medications Medication Instructions Recorded Confirmed amlodipine 10 mg tablet 10 mg PO DAILY 02/02/18 05/04/20 certolizumab pegol 200 mg SUBCUT ONCE 02/02/18 05/04/20 folic acid 400 mcg tablet 400 mcg PO DAILY 02/02/18 05/04/20 modafinil 200 mg tablet 200 mg PO DAILY 02/02/18 05/04/20 montelukast 10 mg tablet 10 mg PO QPM 02/02/18 05/04/20 omega-3 fatty acids 1,000 mg 2,000 mg PO DAILY 02/02/18 05/04/20 capsule omeprazole 20 mg tablet,delayed 20 mg PO DAILY 02/02/18 05/04/20 release testosterone cypionate 200 mg/mL 200 mg IM Q2W 02/02/18 05/04/20 intramuscular oil valsartan 320 mg tablet 320 mg PO DAILY 02/02/18 05/04/20 Allergies Allergy/AdvReac Type Severity Reaction Status Date / Time bupropion [From WELLBUTRIN] Allergy Intermediate Hives Verified 05/04/20 11:03 effudex cream Allergy Severe Facial Uncoded 03/22/18 09:47 swelling Review of Systems Constitutional Constitutional: Denies fever(s) and Denies headache(s) ENT Ears, Nose, Mouth, and Throat: Denies headache(s) Cardiovascular Cardiovascular: Denies chest pain and Denies dyspnea Respiratory Respiratory: Denies dyspnea Gastrointestinal Gastrointestinal: Reports abdominal pain, Reports bloating, Reports constipation, Denies nausea and Denies vomiting Genitourinary Genitourinary: Denies dysuria Genitourinary: Denies dysuria Musculoskeletal Musculoskeletal: Denies arthralgias and Denies myalgias Integumentary/Breasts Skin/Breast: Denies lesions and Denies rash Neurologic Neurologic: Denies behavioral changes and Denies headache(s) Psychiatric Psychiatric: Denies behavioral changes Hematologic/Lymphatic Hematologic/Lymphatic: Denies easy bleeding and Denies easy bruising Allergic/Immunologic Allergic/Immunologic: Denies urticaria Patient History Medical History Crohn's disease with complication (03/08/16) Essential hypertension (03/08/16) Glioblastoma Iron deficiency (03/08/16) Pulmonary emphysema (03/08/16) Social History Smoking Status: Former smoker Smoking Status: Former smoker alcohol intake frequency: a few times a month Substance Use Type: marijuana Exam Initial Vital Signs Initial Vital Signs: Vital Signs Temperature 98.3 F 07/06/20 17:27 Pulse Rate 78 07/06/20 17:27 Respiratory Rate 24 07/06/20 17:27 Blood Pressure 165/104 H 07/06/20 17:27 Pulse Oximetry 97 07/06/20 17:27 Const General: cooperative and comfortable Limitations: mental status not altered HENPA Head: normal to inspection and normocephalic Resp Effort & Inspection: normal respiratory effort Cardio Rate: regular rate GI Inspection: distended Palpation: tender Back/Spine/Pelvis Back: No CVA tenderness Skin Lesions: no lesions Rashes: no rashes Neuro General: patient alert and patient awake Cognition: normal cognition Speech: speech normal Extrem General: normal to inspection and capillary refill normal Psych Appearance: grossly normal and well kempt Course Orders Ordered: ED Orders 07/06/20 18:22 XR abdomen 1V Stat Discontinued Medications Mineral Oil (Mineral Oil 1 Each Enema) 1 each UT NOW ONE Stop: 07/06/20 18:21 Last Admin: 07/06/20 19:04 Dose: 1 each Documented by: JANY Vital Signs Vital signs: Vital Signs - 8 hr 07/06/20 17:27 07/06/20 19:16 07/06/20 20:23 Temperature 98.3 F Pulse Rate 78 62 67 Respiratory Rate 24 16 Blood Pressure 165/104 H 150/90 H Pulse Oximetry 97 97 94 MDM - Abdominal Pain Imaging Data Abdominal x-ray: Radiologist's Impression: [address] [id number] ReportSigned Patient: Joce RichardsMR#: [id number]: 7Acct:[id number]/Sex: 74 / MDate of Service: 07/06/20Loc: EDAccession Number: [id number] Procedure: XR abdomen 1V Ordering Provider: Abdelrahman Montanez D.O. PROCEDURE: XR ABDOMEN 1V COMPARISON: None. INDICATIONS: costipation FINDINGS: A single view of the abdomen was performed. There is a large amount of stool retained in the large bowel. No free air, pneumatosis, or portal venous gas. The patient is status post cholecystectomy. The lumbar spine has been fixated with pedicular screw and prerna fixation spanning from L2 to S1. IMPRESSION: Severe constipation. No evidence of bowel obstruction. Dictated by: Derek Crouch M.D. on 07/06/2020 at 19:05 Approved by: Derek Crouch M.D. on 07/06/2020 at 19:06 [facility] Narrative Medical decision making narrative: Had a long discussion with the patient regarding his symptoms. We did discuss the risks of doing had a Mohs given the fact that he is on chemotherapy and potentially causing bacteremia. He understood these risks. We decided to start with an enema as we felt this would be less trauma than a manual disimpaction. We also discussed other possibilities to include bowel obstructions. He has had bowel obstruction in the past. He feels like this is not a bowel obstruction. Given what his x-ray looks like, his exam, the fact that he is on medications that cause constipation I feel that this is most likely the issue and we will hold on a CT scan for now. He was able to get some relief after an enema here in the ER. We did discuss the use of laxatives and stool softeners at home. He will continue to take these medications as he will likely continue to have constipation issues as long as he is on his chemotherapy medicines. He was given strict return precautions. He expressed understanding and agreement. Discharge Plan Departure Patient Disposition: Home Clinical Impression: Constipation, Abdominal pain Instructions: DI for Constipation Activity Restrictions/Additional Instructions: Continue all of your medications as directed. Like we discussed I do recommend that you increase your fluid intake and also include a fiber supplement. Also recommend you start on a daily regiment of a laxative of your choice. Contact your oncologist to let him/her know that you are having constipation issues in were here in the emergency department. Return to the emergency department for any new or worsening symptoms Prescriptions: No Action amlodipine 10 mg tablet 10 mg PO DAILY RF: 0 valsartan 320 mg tablet 320 mg PO DAILY RF: 0 modafinil 200 mg tablet 200 mg PO DAILY RF: 0 certolizumab pegol [Cimzia] 400 mg/2 mL (200 mg/mL x 2) syringe kit 200 mg SUBCUT ONCE RF: 0 omeprazole 20 mg tablet,delayed release (DR/EC) 20 mg PO DAILY RF: 0 testosterone cypionate [Depo-Testosterone] 200 mg/mL oil 200 mg IM Q2W RF: 0 montelukast [Singulair] 10 mg tablet 10 mg PO QPM RF: 0 omega-3 fatty acids [Fish Oil Concentrate] 1,000 mg capsule 2,000 mg PO DAILY RF: 0 folic acid 400 mcg tablet 400 mcg PO DAILY RF: 0 Referrals: Aditi Obregon MD [Primary Care Provider] -
[2020-07-06] MEDS: MINERAL OIL 1 EACH ENEMA PR (19:04)
[2020-07-06 19:16] VITALS: PULSE 62; O2SAT 97
[2020-07-06 20:23] VITALS: BP 150/90; PULSE 67; RESP 16; O2SAT 94
--- NOTE | 2020-07-06 20:23 | PC.NURSE ---
Pt had a large formed greasy brown BM. Dr Montanez made aware
== END 2020-07-06 20:22 | disposition home or self-care (01) ==
PROVIDERS: Emergency Provider Emergency Medicine; PCP Family Medicine
DX: R10.9 Unspecified abdominal pain (principal); K59.00 Constipation, unspecified
CPT/HCPCS: 74018; 99283

== ENCOUNTER → 2020-08-01 08:57 | Outpatient (CLI) | payer MEDICARE, SELFPAY | PROVIDERS: PCP Family Medicine; Visit Provider Nurse Practitioner | DX: R30.0 Dysuria (principal) | CPT/HCPCS: 87077; 87086; 87186 ==

== ENCOUNTER → 2020-08-25 11:35 | Outpatient (CLI) | payer MEDICARE, SELFPAY ==
[2020-08-25 12:19] LABS: Hematocrit 49.6 % (41-53); Hemoglobin 16.7 g/dL (13.5-17.5); Mean Corpuscular HGB Conc 33.7 % (30-36)
[2020-08-25 12:22] LABS: Mean Corpuscular Hemoglobin 34.3 PG (26-34); Mean Corpuscular Volume 101.9 fL (80-100); Platelet Count 179 X10^3/uL (150-400); Red Blood Cell Count 4.86 X10^6/uL (4.5-5.9); Red Cell Distribution Width 17.7 % (11.6-14.8); White Blood Cell Count 9.4 X10^3/uL (4.5-11.0)
[2020-08-25 12:24] LABS: Add Manual Diff / Slide Review YES
[2020-08-25 13:12] LABS: Anisocytosis 1+; Macrocytosis 1+; Neutrophils Absolute Manual 7238 /uL (3000-5900); Poikilocytosis 1+; Total Cells Counted 100
== END ==
PROVIDERS: PCP Family Medicine; Referring Provider Nurse Practitioner Family; Visit Provider Nurse Practitioner Family
DX: C71.9 Malignant neoplasm of brain, unspecified (principal)
CPT/HCPCS: 36415; 85007; 85025

== ENCOUNTER → 2020-09-10 09:13 | Outpatient (CLI) | payer MEDICARE, SELFPAY ==
[2020-09-10 09:28] LABS: Add Manual Diff / Slide Review NO; Basophils Absolute Auto 0 /uL (0-100); Basophils Percent Auto 0.5 % (0-2); Eosinophils Absolute Auto 0 /uL (0-450); Eosinophils Percent Auto 0.3 % (2-4); Hematocrit 48.2 % (41-53); Hemoglobin 16.1 g/dL (13.5-17.5); Lymphocytes Absolute Auto 1800 /uL (1100-4500); Lymphocytes Percent Auto 20.8 % (25-40); Mean Corpuscular HGB Conc 33.3 % (30-36); Mean Corpuscular Hemoglobin 34.4 PG (26-34); Mean Corpuscular Volume 103.4 fL (80-100); Monocytes Absolute Auto 600 /uL (0-900); Monocytes Percent Auto 7.4 % (3-14); Neutrophils Absolute Auto 6100 /uL (1500-7000); Platelet Count 209 X10^3/uL (150-400); Red Blood Cell Count 4.66 X10^6/uL (4.5-5.9); White Blood Cell Count 8.6 X10^3/uL (4.5-11.0)
[2020-09-10 09:41] LABS: Alanine Aminotransferase 51 IU/L (<50); Albumin Globulin Ratio 1.5 (1.0-2.8); Alkaline Phosphatase 77 U/L (38-126); Aspartate Aminotransferase 40 IU/L (17-59); BUN Creatinine Ratio 16.7 (6-22); Bilirubin Total 0.7 mg/dL (0.2-1.3); Blood Urea Nitrogen 16 mg/dL (9-20); Calcium 9.2 mg/dL (8.4-10.2); Carbon Dioxide 31 mmol/L (22-32); Chloride 104 mmol/L (98-107); Estimated Glomerular Filt Rate > 60.0 mL/min (>60); Globulin 2.6 g/dL (1.7-4.1); Glucose 122 mg/dL (80-110); HEMOLYSIS 16 (0-50); Potassium 3.9 mmol/L (3.4-5.1); Sodium 137 mmol/L (137-145); Total Protein 6.6 g/dL (6.3-8.2)
== END ==
PROVIDERS: PCP Family Medicine; Referring Provider Nurse Practitioner Family; Visit Provider Nurse Practitioner Family
DX: C71.9 Malignant neoplasm of brain, unspecified (principal)
CPT/HCPCS: 36415; 80053; 85025

== ENCOUNTER → 2020-10-11 15:00 | Outpatient (CLI) | payer MEDICARE, SELFPAY | PROVIDERS: PCP Family Medicine; Visit Provider Physician Assistant | DX: R35.8 Other polyuria (principal) | CPT/HCPCS: 87077; 87086; 87186 ==

== ENCOUNTER 2020-11-06 14:25 | Emergency (ER) | payer MEDICARE, SELFPAY ==
[2020-11-06] VITALS (23 sets, daily range): BP systolic 142–182; BP diastolic 89–110; PULSE 50–95; RESP 10–23; TEMP 36.6; O2SAT 94–98; BMI 25.1
--- NOTE | 2020-11-06 15:03 | ED_ITS ---
HPI - Recheck/Abnormal Lab/Rx General Chief Complaint: Recheck/Abnormal Lab/Rx Stated Complaint: Elevated BP Time Seen by Provider: 11/06/20 14:54 Source: patient Mode of arrival: Ambulatory Limitations: no limitations History of Present Illness HPI narrative: Patient is a 75-year-old male who just recently received chemotherapy medication who was told by his oncologist that it could cause an elevation blood pressure. Patient has a baseline elevation blood pressure. He is on metoprolol 25 mg in the morning and 25 mg at night. He is also on losartan 100 mg a day. He is no longer on amlodipine. He states that his oncologist told him that if his blood pressure got above 160 systolic that he needed to come in to be evaluated is a concern that the tumor that he has in his brain made bleed. He took his blood pressure today and it was becoming elevated into the 170 systolic. He has taken his blood pressure medicines today. He reports no symptoms. Related Data Home Medications Medication Instructions Recorded Confirmed amlodipine 10 mg tablet 10 mg PO DAILY 02/02/18 08/01/20 certolizumab pegol 200 mg SUBCUT ONCE 02/02/18 08/01/20 omeprazole 20 mg tablet,delayed 20 mg PO DAILY 02/02/18 08/01/20 release testosterone cypionate 200 mg/mL 200 mg IM Q2W 02/02/18 08/01/20 intramuscular oil valsartan 320 mg tablet 320 mg PO DAILY 02/02/18 08/01/20 dexamethasone 2 mg tablet 2 mg PO DAILY 08/01/20 08/01/20 Previous Rx's Medication Instructions Recorded hydralazine 10 mg PO DAILY #30 tab 11/06/20 Allergies Allergy/AdvReac Type Severity Reaction Status Date / Time fluorouracil [From Efudex] Allergy Severe FACIAL Verified 11/06/20 16:33 SWELLING bupropion [From WELLBUTRIN] Allergy Intermediate Hives Verified 11/06/20 14:35 tamsulosin [From Flomax] Allergy swelling Verified 11/06/20 14:35 of the feet and ankles Review of Systems Constitutional Constitutional: Denies chills, Denies fever(s) and Denies headache(s) ENT Ears, Nose, Mouth, and Throat: Denies headache(s) Cardiovascular Cardiovascular: Denies chest pain and Denies dyspnea Respiratory Respiratory: Denies cough and Denies dyspnea Gastrointestinal Gastrointestinal: Denies abdominal pain, Denies nausea and Denies vomiting Genitourinary Genitourinary: Denies dysuria Genitourinary: Denies dysuria Musculoskeletal Musculoskeletal: Denies arthralgias and Denies myalgias Integumentary/Breasts Skin/Breast: Denies lesions and Denies rash Neurologic Neurologic: Denies behavioral changes and Denies headache(s) Psychiatric Psychiatric: Denies behavioral changes Hematologic/Lymphatic On Anticoagulants: No Allergic/Immunologic Allergic/Immunologic: Denies urticaria Patient History Medical History Crohn's disease with complication (03/08/16) Essential hypertension (03/08/16) Glioblastoma Iron deficiency (03/08/16) Pulmonary emphysema (03/08/16) UTI (urinary tract infection) Social History Smoking Status: Former smoker Smoking Status: Former smoker alcohol intake frequency: a few times a month Substance Use Type: marijuana Exam Initial Vital Signs Initial Vital Signs: Vital Signs Temperature 97.9 F 11/06/20 14:28 Pulse Rate 63 11/06/20 14:28 Respiratory Rate 12 11/06/20 14:28 Blood Pressure 182/96 H 11/06/20 14:28 Pulse Oximetry 96 11/06/20 14:28 Const General: cooperative, healthy appearing, comfortable, well developed and well groomed Limitations: mental status not altered HENMT Head: normal to inspection and normocephalic Resp Effort & Inspection: normal respiratory effort Auscultation: clear to auscultation bilaterally Cardio Rate: regular rate Rhythm: regular rhythm GI Inspection: non-distended Palpation: soft and No tender Skin Lesions: no lesions Rashes: no rashes Neuro General: patient alert, patient awake and patient oriented x3 Cognition: normal cognition Speech: speech normal Gait: normal gait Extrem General: normal to inspection and capillary refill normal Psych Appearance: grossly normal and well kempt Scores GCS Brady coma scale eye opening: Spontaneous Jarrell coma scale verbal response: Orientated Brady coma scale motor response: Obey commands Jarrell coma scale total score: 15 Course Orders Ordered: Discontinued Medications Hydralazine HCl (Hydralazine 10 Mg Tablet) 10 mg PO NOW ONE Stop: 11/06/20 16:31 Last Admin: 11/06/20 16:46 Dose: 10 mg Documented by: DANIEL Hydralazine HCl (Hydralazine 20 Mg/Ml Vial) 10 mg IV NOW ONE Stop: 11/06/20 18:02 Last Admin: 11/06/20 18:23 Dose: 10 mg Documented by: DANIEL Vital Signs Vital signs: Vital Signs - 8 hr 11/06/20 14:28 Temperature 97.9 F Pulse Rate 63 Respiratory Rate 12 Blood Pressure 182/96 H Pulse Oximetry 96 MDM - Recheck/Abnormal Lab/Rx Lab Data Attestation: I reviewed the patient's lab results. Result diagrams: 11/06/20 15:05 11/06/20 15:05 Labs: Lab Results 11/06/20 11/06/20 11/06/20 Range/Units 15:05 15:05 15:05 WBC 8.2 (4.5-11.0) X10^3/uL RBC 4.07 L (4.5-5.9) X10^6/uL Hgb 14.1 (13.5-17.5) g/dL Hct 41.9 (41-53) % MCV 103.1 H (80-100) fL MCH 34.8 H (26-34) PG MCHC 33.8 (30-36) % RDW 13.9 (11.6-14.8) % Plt Count 173 (150-400) X10^3/uL Neut % (Auto) Not Reportable Lymph % (Auto) Not Reportable [place] % (Auto) Not Reportable Eos % (Auto) Not Reportable Baso % (Auto) Not Reportable Lymph # (Auto) Not Reportable [place] # (Auto) Not Reportable Baso # (Auto) Not Reportable Total Counted 100 Seg Neutrophils % 73.0 H (38-70) % Band Neutrophils % 2.0 L (3-7) % Lymphocytes % (Manual) 16.0 L (25-45) % Atypical Lymphs % 3.0 H ( - 0) % Monocytes % (Manual) 4.0 (2-11) % Myelocytes % 2.0 H (-0) % Neutrophils # (Manual) 6150 H (9163-5304) /uL RBC Morphology See below Macrocytosis 2+ H Sodium 139 (137-145) mmol/L Potassium 4.0 (3.4-5.1) mmol/L Chloride 105 (98-107) mmol/L Carbon Dioxide 27 (22-32) mmol/L BUN 23 H (9-20) mg/dL Creatinine 1.00 (0.66-1.25) mg/dL Estimated GFR > 60.0 (>60) mL/min BUN/Creatinine Ratio 23.0 H (6-22) Glucose 129 H (80-110) mg/dL Calcium 9.0 (8.4-10.2) mg/dL Troponin I < 0.012 (0.01-0.034) ng/mL ECG Data Attestation: I personally reviewed and interpreted this ECG as follows: Prior ECG tracings: not available for review Interpretation: Sinus bradycardia Ventricular rate 57 First-degree AV block MN interval 214 milliseconds Normal axis Normal QRS Normal QTC No ST T wave changes MDM Narrative Medical decision making narrative: Patient is completely asymptomatic however was hypertensive upon arrival. He does have a valid concern given his known brain tumor about potential intracranial hemorrhage. I feel it is unlikely currently and I feel we can hold on a CT scan for now. During his stay here in the emergency department his blood pressure did decrease on its own however a did fluctuate back to a systolic in the 170s. In did consider giving him another dose of his metoprolol however patient is bradycardic and he states that when he takes his blood pressure at home his heart rate is normally in the mid to low 50s. He is already on a fairly high dose of his losartan. He was given 10 mg of hydralazine by mouth which did not change his blood pressure at all. He was then given another 10 mg hydralazine IV which did improve his blood pressure. Plan will be is to send him home with oral hydralazine. He is instructed to take his normal dose of metoprolol and then several hours later check his blood pressure. If it is greater than 150 he is to take 1 dose of hydralazine and then recheck his blood pressure a short time later and if needed he can take another dose. He was also given return precautions for regard to symptoms related to his high blood pressure. He was also given instructions with regard to his evening blood pressure medicines. He and his was at bedside expressed understanding agreement this plan. Discharge Plan Departure Patient Disposition: Home Clinical Impression: Hypertension Instructions: Essential Hypertension Activity Restrictions/Additional Instructions: I recommend that you continue to take your metoprolol on the morning. Several hours after taking this medicine take your blood pressure again. If the top number is greater than 150 take 1 dose of your hydralazine. Wait a couple hours and take your blood pressure again. If it again is greater than 150 take 1 more dose of the hydralazine. Again wait a couple hours intake your blood pressure once again. If it continues to be above 150 contact your oncologist for further recommendations. If you happen to take the hydralazine during the afternoon I do recommend you take your blood pressure prior to taking your medicines in the evening. If the top number is less than 120 I recommend only taking your metoprolol. Continue to keep all of your medical appointments. Return to the emergency department for any new or worsening symptoms Prescriptions: New hydralazine 10 mg tablet 10 mg PO DAILY Qty: 30 RF: 0 No Action dexamethasone 2 mg tablet 2 mg PO DAILY RF: 0 amlodipine 10 mg tablet 10 mg PO DAILY RF: 0 valsartan 320 mg tablet 320 mg PO DAILY RF: 0 certolizumab pegol [Cimzia] 400 mg/2 mL (200 mg/mL x 2) syringe kit 200 mg SUBCUT ONCE RF: 0 omeprazole 20 mg tablet,delayed release (DR/EC) 20 mg PO DAILY RF: 0 testosterone cypionate [Depo-Testosterone] 200 mg/mL oil 200 mg IM Q2W RF: 0 Referrals: Aditi Obregon MD [Primary Care Provider] -
[2020-11-06 15:23] LABS: Blood Urea Nitrogen 23 mg/dL (9-20); Carbon Dioxide 27 mmol/L (22-32); Chloride 105 mmol/L (98-107); Estimated Glomerular Filt Rate > 60.0 mL/min (>60); Glucose 129 mg/dL (80-110); HEMOLYSIS 23 (0-50); Sodium 139 mmol/L (137-145)
[2020-11-06 15:26] LABS: Hematocrit 41.9 % (41-53); Hemoglobin 14.1 g/dL (13.5-17.5); Mean Corpuscular HGB Conc 33.8 % (30-36); Mean Corpuscular Hemoglobin 34.8 PG (26-34); Mean Corpuscular Volume 103.1 fL (80-100); Platelet Count 173 X10^3/uL (150-400); Red Blood Cell Count 4.07 X10^6/uL (4.5-5.9); Red Cell Distribution Width 13.9 % (11.6-14.8); White Blood Cell Count 8.2 X10^3/uL (4.5-11.0)
[2020-11-06 15:27] LABS: Add Manual Diff / Slide Review YES
[2020-11-06 15:35] LABS: Troponin I < 0.012 ng/mL (0.01-0.034)
[2020-11-06 15:58] LABS: Neutrophils Absolute Manual 6150 /uL (3000-5900); Total Cells Counted 100
[2020-11-06 16:00] LABS: Macrocytosis 2+
[2020-11-06] MEDS: HYDRALAZINE 10 MG TABLET PO (16:46)
[2020-11-06] MEDS: HYDRALAZINE 20 MG/ML VIAL 10 MG IV (18:23)
== END 2020-11-06 19:25 | disposition home or self-care (01) ==
PROVIDERS: Emergency Provider Emergency Medicine; PCP Family Medicine
DX: I10 Essential (primary) hypertension (principal); R00.1 Bradycardia, unspecified
CPT/HCPCS: 36415; 80048; 84484; 85007; 85025; 93005; 93010; 96374; 99284; J0360

== ENCOUNTER 2021-01-25 07:39 | Emergency (ER) | payer MEDICARE, SELFPAY ==
[2021-01-25 07:45] VITALS: BP 182/123; PULSE 100; RESP 22; TEMP 37; O2SAT 98; BMI 25.8
--- NOTE | 2021-01-25 07:49 | DI.RAD.S_ITS ---
PROCEDURE: XR ABDOMEN MIN 2V INDICATIONS: no bm and disteneded TECHNIQUE: 2 views of the abdomen were acquired. COMPARISON: [facility], , XR ABDOMEN 1V, 07/06/2020, 18:31. FINDINGS: Surgical changes and devices: Postfusion changes in lumbar spine are seen at L2 through S1 levels. Postsurgical changes also noted in right lower quadrant abdomen. Bowel: No pneumoperitoneum. The bowel gas pattern is is nonobstructive. Significant fecal stasis throughout the colon is seen extending to rectum. Soft tissues: No masses; visualized solid organ contours appear normal in size. No suspicious abdominal calcifications. Bones: No suspicious bony abnormalities. IMPRESSION: Suggestion of moderate constipation and fecal impaction. No gross free air. Dictated by: Alexi Saldivar M.D. on 01/25/2021 at 8:12 Approved by: Alexi Saldivar M.D. on 01/25/2021 at 8:15
--- NOTE | 2021-01-25 07:53 | ED.ABDPAIN ---
HPI - Abdominal Pain General Chief Complaint: Abdominal Pain Stated Complaint: IMPACTED BOWEL Time Seen by Provider: 01/25/21 07:42 Source: patient Mode of arrival: Ambulatory Limitations: no limitations History of Present Illness HPI narrative: Patient is 75-year-old male with history of glioblastoma currently being treated with radiation and chemo. He has not had a bowel movement he says in 1 day. states that he frequently has diarrhea and so he does take Imodium. Apparently last week they cut the Imodium in half because he was having less frequent stools. Today his abdomen is quite distended he feels like he has pressure in his rectum tried a Fleet enema yesterday but was unable to get it in completely. He is in quite a bit of pain he denies nausea vomiting or fever. He is erythematous all on his abdomen says from radiation. states that his medication can cause perforated bowel. MD complaint: abdominal pain Onset (ago): week(s) Pain Consistency: constant Location: diffuse Severity: moderate Quality: cramping and fullness Radiation: none Related Data Home Medications Medication Instructions Recorded Confirmed amlodipine 10 mg tablet 10 mg PO DAILY 02/02/18 08/01/20 certolizumab pegol 200 mg SUBCUT ONCE 02/02/18 08/01/20 omeprazole 20 mg tablet,delayed 20 mg PO DAILY 02/02/18 08/01/20 release testosterone cypionate 200 mg/mL 200 mg IM Q2W 02/02/18 08/01/20 intramuscular oil valsartan 320 mg tablet 320 mg PO DAILY 02/02/18 08/01/20 dexamethasone 2 mg tablet 2 mg PO DAILY 08/01/20 08/01/20 Previous Rx's Medication Instructions Recorded hydralazine 10 mg PO DAILY #30 tab 11/06/20 lactulose 15 ml PO BID PRN #600 ml 01/25/21 Allergies Allergy/AdvReac Type Severity Reaction Status Date / Time fluorouracil [From Efudex] Allergy Severe FACIAL Verified 01/25/21 07:47 SWELLING bupropion [From WELLBUTRIN] Allergy Intermediate Hives Verified 01/25/21 07:47 tamsulosin [From Flomax] Allergy swelling Verified 01/25/21 07:47 of the feet and ankles Review of Systems Review of Systems Narrative: GENERAL: Denies chills, fatigue, malaise, fever, sweats, travel HEENT: Denies sinus pain, ear pain, sore throat, difficulty swallowing, neck pain RESPIRATORY: Denies dyspnea, cough, wheezing, hemoptysis, sputum. CARDIOVASCULAR: Denies chest pain, palpitations, orthopnea, edema GI: see HPI : Denies dysuria, frequency, incontinence, hematuria, urinary retention, flank pain. MUSCULOSKELETAL: Denies weakness, joint pain, or bony pain SKIN: Erythematous rash on abdomen NEUROLOGIC: Denies weakness, dizziness, headache, numbness, change in speech, confusion PSYCHIATRIC: No concerning psychosocial issues. 12 point review of systems is negative except for those stated above and HPI Patient History Medical History Crohn's disease with complication (03/08/16) Essential hypertension (03/08/16) Glioblastoma Iron deficiency (03/08/16) Pulmonary emphysema (03/08/16) UTI (urinary tract infection) Social History Smoking Status: Former smoker Smoking Status: Former smoker alcohol intake frequency: a few times a month Substance Use Type: marijuana Exam Initial Vital Signs Initial Vital Signs: Vital Signs Temperature 98.6 F 01/25/21 07:45 Pulse Rate 100 H 01/25/21 07:45 Respiratory Rate 22 01/25/21 07:45 Blood Pressure 182/123 H 01/25/21 07:45 Pulse Oximetry 98 01/25/21 07:45 GENERAL: Alert 74-year-old male appears uncomfortable HEENT: Head atraumatic,EOMI, pupils reactive, face symmetric, moist mucous membranes CARDIOVASCULAR: Regular rate and rhythm without murmurs, rubs or gallops. RESPIRATORY: Breath sounds equal bilaterally, no wheezes rales or rhonchi. ABDOMEN: Distended decreased bowel sounds EXTREMITIES: Normal range of motion, no clubbing or edema. Neurovascularly intact NEUROLOGICAL: Alert and oriented x4.Normal gait and speech. SKIN: Warm, dry, no laceration, no petechiae, no rashes or lesions. Course Orders Ordered: ED Orders 01/25/21 07:49 XR abdomen min 2V Stat 01/25/21 07:55 Complete Blood Count AUTO DIFF Stat Comprehensive Metabolic Panel Stat Lactate (Lactic Acid) Stat Lipase Stat Discontinued Medications Sodium Chloride (Normal Saline 0.9%) 1,000 mls @ 150 mls/hr IV CONT KIMBERLY Last Infusion: 01/25/21 08:55 Dose: 0 mls/hr Documented by: Vital Signs Vital signs: Vital Signs - 8 hr 01/25/21 07:45 01/25/21 08:57 Temperature 98.6 F Pulse Rate 100 H 63 Respiratory Rate 22 14 Blood Pressure 182/123 H 133/93 H Pulse Oximetry 98 98 MDM - Abdominal Pain Lab Data Attestation: I reviewed the patient's lab results. Result diagrams: 01/25/21 07:55 01/25/21 07:55 Labs: Lab Results 01/25/21 01/25/21 01/25/21 Range/Units 07:55 07:55 07:55 WBC 15.0 H (4.5-11.0) X10^3/uL RBC 4.61 (4.5-5.9) X10^6/uL Hgb 16.4 (13.5-17.5) g/dL Hct 49.5 (41-53) % MCV 107.5 H (80-100) fL MCH 35.5 H (26-34) PG MCHC 33.0 (30-36) % RDW 13.6 (11.6-14.8) % Plt Count 147 L (150-400) X10^3/uL Neut % (Auto) Not Reportable Lymph % (Auto) Not Reportable [place] % (Auto) Not Reportable Eos % (Auto) Not Reportable Baso % (Auto) Not Reportable Lymph # (Auto) Not Reportable [place] # (Auto) Not Reportable Baso # (Auto) Not Reportable Total Counted 100 Seg Neutrophils % 70.0 (38-70) % Lymphocytes % (Manual) 14.0 L (25-45) % Atypical Lymphs % 2.0 H ( - 0) % Monocytes % (Manual) 12.0 H (2-11) % Myelocytes % 2.0 H (-0) % Neutrophils # (Manual) 19262 H (9849-6382) /uL RBC Morphology See below Macrocytosis 1+ H Sodium 136 L (137-145) mmol/L Potassium 4.0 (3.4-5.1) mmol/L Chloride 101 (98-107) mmol/L Carbon Dioxide 28 (22-32) mmol/L BUN 29 H (9-20) mg/dL Creatinine 0.83 (0.66-1.25) mg/dL Estimated GFR > 60.0 (>60) mL/min BUN/Creatinine Ratio 34.9 H (6-22) Glucose 111 H (80-110) mg/dL Lactate 3.8 H (0.7-2.1) mmol/L Calcium 9.6 (8.4-10.2) mg/dL Total Bilirubin 0.8 (0.2-1.3) mg/dL AST 57 (17-59) IU/L ALT 91 H (<50) IU/L Alkaline Phosphatase 79 (38-126) U/L Total Protein 6.9 (6.3-8.2) g/dL Albumin 3.8 (3.5-5.0) g/dL Globulin 3.1 (1.7-4.1) g/dL Albumin/Globulin Ratio 1.2 (1.0-2.8) Lipase 60 (23-300) U/L Imaging Data Abdominal x-ray: Radiologist's Impression: PROCEDURE: XR ABDOMEN MIN 2V INDICATIONS: no bm and disteneded TECHNIQUE: 2 views of the abdomen were acquired. COMPARISON: [facility], , XR ABDOMEN 1V, 07/06/2020, 18:31. FINDINGS: Surgical changes and devices: Postfusion changes in lumbar spine are seen at L2 through S1 levels. Postsurgical changes also noted in right lower quadrant abdomen. Bowel: No pneumoperitoneum. The bowel gas pattern is is nonobstructive. Significant fecal stasis throughout the colon is seen extending to rectum. Soft tissues: No masses; visualized solid organ contours appear normal in size. No suspicious abdominal calcifications. Bones: No suspicious bony abnormalities. IMPRESSION: Suggestion of moderate constipation and fecal impaction. No gross free air. Dictated by: Alexi Saldivar M.D. on 01/25/2021 at 8:12 MDM Narrative Medical decision making narrative: The patient fortunately had a very large bowel movement shortly after he arrived to the emergency department. He is overall feeling significantly better. X-ray shows constipation and no obstruction or free air. Constipation is likely secondary to Imodium use chemo and radiation. Recommend he stop taking Imodium. He said he started after he had a cholecystectomy in he was having diarrhea but clearly no longer needs it. Discharge Plan Departure Patient Disposition: Home Clinical Impression: Constipation Qualifiers: Constipation type: unspecified constipation type Qualified Code(s): K59.00 - Constipation, unspecified Instructions: DI for Constipation Activity Restrictions/Additional Instructions: *You have been diagnosed with constipation *What to do: At this time I think her constipation is likely due to a combination of Imodium and his chemo radiation. I recommend stop taking Imodium unless you are having diarrhea. *Continue to take medications as directed Lactulose 15 mL twice a day or in till bowel movement-->SAFEWAY in [place] *Follow up with your primary care provider in 2-3 days *Return to ER if you should have increasing abdominal pain nausea vomiting fever more than 100.4 or any new, worsening or concerning symptoms Prescriptions: New lactulose 10 gram/15 mL (15 mL) solution 15 ml PO BID PRN (Reason: constipation) Qty: 600 RF: 0 No Action dexamethasone 2 mg tablet 2 mg PO DAILY RF: 0 amlodipine 10 mg tablet 10 mg PO DAILY RF: 0 valsartan 320 mg tablet 320 mg PO DAILY RF: 0 certolizumab pegol [Cimzia] 400 mg/2 mL (200 mg/mL x 2) syringe kit 200 mg SUBCUT ONCE RF: 0 omeprazole 20 mg tablet,delayed release (DR/EC) 20 mg PO DAILY RF: 0 testosterone cypionate [Depo-Testosterone] 200 mg/mL oil 200 mg IM Q2W RF: 0 hydralazine 10 mg tablet 10 mg PO DAILY Qty: 30 RF: 0 Referrals: Aditi Obregon MD [Primary Care Provider] -
[2021-01-25 08:11] LABS: Hematocrit 49.5 % (41-53); Hemoglobin 16.4 g/dL (13.5-17.5); Mean Corpuscular Hemoglobin 35.5 PG (26-34); Mean Corpuscular Volume 107.5 fL (80-100); Platelet Count 147 X10^3/uL (150-400); Red Blood Cell Count 4.61 X10^6/uL (4.5-5.9); Red Cell Distribution Width 13.6 % (11.6-14.8)
[2021-01-25 08:16] LABS: Add Manual Diff / Slide Review YES; Alanine Aminotransferase 91 IU/L (<50); Albumin 3.8 g/dL (3.5-5.0); Albumin Globulin Ratio 1.2 (1.0-2.8); Alkaline Phosphatase 79 U/L (38-126); Aspartate Aminotransferase 57 IU/L (17-59); BUN Creatinine Ratio 34.9 (6-22); Bilirubin Total 0.8 mg/dL (0.2-1.3); Blood Urea Nitrogen 29 mg/dL (9-20); Calcium 9.6 mg/dL (8.4-10.2); Carbon Dioxide 28 mmol/L (22-32); Chloride 101 mmol/L (98-107); Estimated Glomerular Filt Rate > 60.0 mL/min (>60); Globulin 3.1 g/dL (1.7-4.1); Glucose 111 mg/dL (80-110); HEMOLYSIS 42 (0-50); Lipase 60 U/L (23-300); Sodium 136 mmol/L (137-145); Total Protein 6.9 g/dL (6.3-8.2)
[2021-01-25] MEDS: SODIUM CHLORIDE 0.9% 1,000 ML 150 ML IV (08:23)
[2021-01-25 08:35] LABS: Neutrophils Absolute Manual 10500 /uL (3000-5900); Total Cells Counted 100
[2021-01-25 08:36] LABS: Macrocytosis 1+
--- NOTE | 2021-01-25 08:53 | PC.NURSE ---
any and all documentation by this nurse after triage entered in error on this patient. removed as much as [employer] would allow. Disregard any and all documentation by this nurse after triage
[2021-01-25 08:57] VITALS: BP 133/93; PULSE 63; RESP 14; O2SAT 98
[2021-01-25 08:59] LABS: Lactate (Lactic Acid) 3.8 mmol/L (0.7-2.1)
[2021-01-25 10:00] LABS: Reflexed Lactate in 2 Hours Y
== END 2021-01-25 08:58 | disposition home or self-care (01) ==
PROVIDERS: Emergency Provider Emergency Medicine; PCP Family Medicine
DX: K59.00 Constipation, unspecified (principal); R10.9 Unspecified abdominal pain
CPT/HCPCS: 74019; 80053; 83605; 83690; 85007; 85025; 96360; 99283; 99284